=== PATIENT | female | born 1940 | race Two or more races ===

== ENCOUNTER 2016-09-17 09:52 | Emergency (ER) | payer SELFPAY ==
[~2016-09-17] VITALS: Ht 152.4 cm; Wt 63.5 kg
[2016-09-17] MEDS ORDERED: DIPHTH,PERTUSS(ACELL),TET TOX 0.5 ML DISP.SYRIN. VAX IM ONE (10:15)
[2016-09-17] MEDS ORDERED: LIDOCAINE 1% / SOD BICARB 8.4% 20 ML VIAL. IJ ONE ×2 (10:15)
[2016-09-17] MEDS ORDERED: LIDOCAINE/EPI/TETRACAINE TOPICAL GEL 3 ML. TP ONE (10:15)
[2016-09-17] MEDS ORDERED: HYDROcodone/APAP 5/325MG 1 TAB TABLET PO ONE (10:15)
[2016-09-17] MEDS ORDERED: NEOMY/BACITR/POLYMYXIN OINT PACKET. TP ONE (10:15)
--- NOTE | 2016-09-17 10:23 | PHYS DOC ---
Adult General Chief Complaint Chief Complaint: ANIMAL BITE HPI HPI Patient is a 76 year old female with history of diabetes type 2, hypertension, high cholesterol, who presents with multiple dog bites to bilateral lower extremities. Patient states she got attacked by 2 dogs that belong to her neighbor. Patient is Jordanian-speaking and statistical geneticist line is used for [place]ian. The daughter did most of the speaking because patient is also hard of hearing. They both state they do not know the vaccine status of the dogs Review of Systems Review of Systems Constitutional: Denies fever or chills [] Musculoskeletal: Denies back pain or joint pain [] Integument: Dog bite bilateral lower extremities Neurologic: Denies headache, focal weakness or sensory changes [] Endocrine: Denies polyuria or polydipsia [] Current Medications Current Medications Current Medications Medications (Trade) Dose Ordered Sig/Duke Start Time Stop Time Status Last Admin Dose Admin Acetaminophen/ Hydrocodone Bitart (Lortab 5/325) 1 tab 1X ONCE 09/17/16 10:15 09/17/16 10:17 DC 09/17/16 10:49 1 TAB Diphtheria/ Tetanus/Acell Pertussis (Boostrix) 0.5 ml ONCE ONCE 09/17/16 10:15 09/17/16 10:17 DC 09/17/16 10:52 0.5 ML Lidocaine/ Epinephrine (Let Topical) 3 ml 1X ONCE 09/17/16 10:15 09/17/16 10:17 DC 09/17/16 10:50 3 ML Lidocaine/Sodium Bicarbonate (Buffered Lidocaine 1%) 20 ml 1X ONCE 09/17/16 10:15 09/17/16 10:17 DC Neomycin/ Polymyxin/ Bacitracin (Triple Antibiotic Ointment) 1 pkt 1X ONCE 09/17/16 10:15 09/17/16 10:17 DC 09/17/16 10:50 1 PKT Allergies Allergies Allergies Coded Allergies Type Severity Reaction Last Updated Verified No Known Drug Allergies 09/17/16 No Physical Exam Physical Exam Constitutional: Well developed, well nourished, no acute distress, non-toxic appearance. [] Skin: Right lateral knee with a dog bite approx. 4X2 cm. full range of motion to the right knee. Neurovascular exam is intact to the right knee. +2 right pedal pulse. Left lateral proximal tibia with multiple dog bites. Significant one is approximately 6 x 4 cm at the proximal tibia. There is another laceration next to 1t approximately 4 x 2 cm. There are multiple small puncture wounds consistent with dog bites on the left tibia. +2 left pedal pulse. Full range of motion to the left lower extremity. Sensation intact bilateral lower extremities. Back: No tenderness, no CVA tenderness. [] Extremities: No tenderness, no cyanosis, no clubbing, ROM intact, no edema. [] Neurologic: Alert and oriented X 3, normal motor function, normal sensory function, no focal deficits noted. [] Psychologic: Affect normal, judgement normal, mood normal. [] Current Patient Data Vital Signs Vital Signs Date Time Temp Pulse Resp B/P (MAP) Pulse Ox O2 Delivery O2 Flow Rate FiO2 09/17/16 11:53 76 159/100 (119) 98 Room Air 09/17/16 11:49 18 09/17/16 09:57 98.6 98.6 EKG EKG [] Radiology/Procedures Radiology/Procedures Indication: Left proximal tibia laceration 6 x 4 cm Procedure: The patient was placed in the appropriate position and anesthesia around the laceration was let solution. The area was explored for foreign objects, none was found. The area was then cleaned with 200 ML of normal saline and 30ml of Betadine. In the laceration was closed loosely with 3 interrupted sutures using 3. 0 Vicryl. The rest of the laceration was left open. All the wounds were cleaned and covered. Neosporin was applied to all the lacerations before covering them.. Course & Med Decision Making Course & Med Decision Making Pertinent Labs and Imaging studies reviewed. (See chart for details) Patient is in the ED with dog bites to bilateral lower extremities, bilateral knee x-rays 4 views and left tib/fib x-ray 2 views as interpreted by radiologist are negative for any acute findings. The laceration on the left proximal lateral lower extremity was closed loosely with 3 interrupted sutures using 3. 0 Vicryl. The rest of the lacerations were left open. We did clean the bites thoroughly before suturing. She was given tetanus vaccine. Discharged with a give Augmentin. Provided wound care instructions. Provided return precautions. Dragon Disclaimer Dragon Disclaimer This electronic medical record was generated, in whole or in part, using a voice recognition dictation system. Departure Departure Impression: Primary Impression: Dog bite of right lower leg Additional Impression: Dog bite of lower leg Disposition: HOME, SELF-CARE Condition: STABLE Patient Instructions: Animal Bite, [id number] Additional Instructions: You were seen for a dog bite to bilateral lower extremities. Keep the areas clean and dry. Apply Neosporin to the area twice a day. You can shower. Complete your antibiotics. Follow-up with your doctor in 1-2 weeks. Come back to the ED if wound condition worsens. Scripts Acetaminophen With Codeine (TYLENOL WITH CODEINE #3 TABLET) 1 Each Tablet 1 TAB PO PRN Q6HRS Y for PAIN, #30 TAB Prov: SHERI DYSON STRINGING MACHINE OPERATOR 09/17/16 Amoxicillin/Potassium Clav (AUGMENTIN 875-125 TABLET) 1 Each Tablet 1 TAB PO BID, #20 TAB Prov: SHERI DYSON APRN 09/17/16 Problem Qualifiers Primary Impression: Dog bite of right lower leg Encounter type: initial encounter Qualified Codes: S81.851A - Open bite, right lower leg, initial encounter; W54.0XXA - Bitten by dog, initial encounter Additional Impression: Dog bite of lower leg Encounter type: initial encounter Laterality: left Qualified Codes: S81.852A - Open bite, left lower leg, initial encounter; W54.0XXA - Bitten by dog, initial encounter SHERI DYSON APRN Sep 17, 2016 10:23
--- NOTE | 2016-09-17 11:56 | RAD ---
Bilateral knees, 09/17/2016: History: Dog bite There is moderate marginal spurring at the left knee joint and at the patellofemoral articulation. No fracture or dislocation is identified. There are gas collections and irregular increased density in the subcutaneous soft tissues laterally compatible with the given history of penetrating trauma. On the right, there is also moderate marginal spurring at the knee joint with extensive spurring at the patellofemoral articulation. A suprapatellar density on the right is probably a loose body in the knee joint. No acute fracture or dislocation is identified. There are gas collections in the subcutaneous soft tissues laterally compatible with penetrating trauma. IMPRESSION: 1. 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 2. No acute bony abnormality is detected. Left tibia and fibula, 2 views, 09/17/2016: History: No fracture is identified. IMPRESSION: No acute bony abnormality is detected.
[2016-09-17] MEDS ORDERED: AMOX1TAB61 PO (12:59)
[2016-09-17] MEDS ORDERED: ACET-704 PO (13:01)
[2016-09-17 13:23] VITALS: BP 146/60
== END 2016-09-17 13:37 | disposition home or self-care (01) ==
LOC: ER 09:52
DX: S81.812A Laceration without foreign body, left lower leg, initial encounter (principal); S81.851A Open bite, right lower leg, initial encounter; E11.9 Type 2 diabetes mellitus without complications; E78.00 Pure hypercholesterolemia, unspecified; I10 Essential (primary) hypertension; W54.0XXA Bitten by dog, initial encounter; Y93.89 Activity, other specified; Y92.89 Other specified places as the place of occurrence of the external cause; Y99.8 Other external cause status
CPT/HCPCS: 12002; 73564; 73590; 90471; 90715; 99284-25

== ENCOUNTER → 2016-10-06 | Outpatient (CLI) | payer MEDICAID ==
[2016-09-17 13:23] VITALS: BP 146/60
[~2016-10-06] MED LIST: ACET-704 PO; AMOX1TAB61 PO
== END | disposition home or self-care (01) ==
LOC: PMGWOUND 09:20
PROVIDERS: ATTEND Emergency Medicine Undersea and Hyperbaric Medicine
DX: S81.802A Unspecified open wound, left lower leg, initial encounter (principal); S81.001A Unspecified open wound, right knee, initial encounter; E78.00 Pure hypercholesterolemia, unspecified; K21.9 Gastro-esophageal reflux disease without esophagitis; E11.9 Type 2 diabetes mellitus without complications; I10 Essential (primary) hypertension; W54.0XXA Bitten by dog, initial encounter; Y93.89 Activity, other specified; Y92.89 Other specified places as the place of occurrence of the external cause; Y99.8 Other external cause status
CPT/HCPCS: 97597

== ENCOUNTER → 2016-10-14 | Outpatient (CLI) | payer MEDICAID ==
[2016-09-17 13:23] VITALS: BP 146/60
== END | disposition home or self-care (01) ==
LOC: PMGWOUND 09:18
PROVIDERS: ATTEND Preventive Medicine Undersea and Hyperbaric Medicine
DX: S81.802D Unspecified open wound, left lower leg, subsequent encounter (principal); I10 Essential (primary) hypertension; E11.9 Type 2 diabetes mellitus without complications; E78.00 Pure hypercholesterolemia, unspecified; K21.9 Gastro-esophageal reflux disease without esophagitis; W54.0XXD Bitten by dog, subsequent encounter
CPT/HCPCS: 11042

== ENCOUNTER → 2016-10-21 | Outpatient (CLI) | payer MEDICAID, OTHER | END | disposition home or self-care (01) | LOC: PMGWOUND 09:37 | PROVIDERS: ATTEND Preventive Medicine Undersea and Hyperbaric Medicine | DX: S81.852D Open bite, left lower leg, subsequent encounter (principal); I10 Essential (primary) hypertension; K21.9 Gastro-esophageal reflux disease without esophagitis; E78.00 Pure hypercholesterolemia, unspecified; W54.0XXD Bitten by dog, subsequent encounter | CPT/HCPCS: 97597 ==

== ENCOUNTER → 2016-11-11 | Outpatient (CLI) | payer OTHER | END | disposition home or self-care (01) | LOC: PMGWOUND 09:28 | PROVIDERS: ATTEND Preventive Medicine Undersea and Hyperbaric Medicine | DX: S81.802D Unspecified open wound, left lower leg, subsequent encounter (principal); I10 Essential (primary) hypertension; E78.00 Pure hypercholesterolemia, unspecified; E11.9 Type 2 diabetes mellitus without complications; W54.0XXD Bitten by dog, subsequent encounter | CPT/HCPCS: 99213 ==